=== PATIENT | female | born 2000 ===

== ENCOUNTER 2020-09-12 23:25 | Inpatient (IN) ==
[2020-09-12] MEDS ORDERED: MEPERIDINE 50 MG/1 ML VIAL IV PRN (23:50)
[2020-09-12] MEDS ORDERED: ONDANSETRON 4 MG/2 ML VIAL IV PRN (23:50)
[2020-09-13 00:21] LABS: Basophils % 0.1 % (0.0-0.8); Eosinophils # 0.1 10*3/uL (0.0-0.87); Eosinophils % 0.8 % (0.00-10.9); Hematocrit 39.2 VOL% (35.7-47.0); Hemoglobin 12.7 GM/DL (12.0-16.0); Immature Granulocytes % 0.4 %; Immature Granulocytes Absolute 0.04 #; Lymphocytes % 20.4 % (21.3-54.2); Mean Corpuscular HGB Conc 32.4 GM/DL (32-36); Mean Corpuscular Volume 87.1 FL (87-102); Mean Platelet Volume 9.4 FL (9.6-12.0); Neutrophils % 72.3 % (38.7-73.9); Platelet Count 323 T/CUMM (130-400); Red Cell Distribution Width 13.8 % (9.3-17.3); White Blood Count 9.9 T/CUMM (4-12)
[2020-09-13 00:40] LABS: Alanine Aminotransferase 19 U/L (13-56); Albumin 2.5 G/DL (3.4-5.0); Alkaline Phosphatase 183 U/L (45-117); Aspartate Amino Transferase 20 U/L (0-37); Bilirubin,Total < 0.39 MG/DL (0.20-1.00); Blood Urea Nitrogen 14 MG/DL (7-18); Calcium 8.6 MG/DL (8.5-10.1); Carbon Dioxide 19 MMOL/L (21-32); Estimated Glom Filtration Rate 157 ML/MIN; Glucose 89 MG/DL (74-106); Osmolality,Calculated 278.4 MOS/KG (273-304); Potassium 4.1 MMOL/L (3.5-5.1); Sodium 140 MMOL/L (136-145); Total Protein 6.6 G/DL (6.4-8.2)
[2020-09-13] MEDS: LACTATED RINGERS 1,000 ML IV SCH ×4 (11:12→20:53)
[2020-09-13] MEDS: OXYTOCIN/LR 20 UNIT/1,000 ML BAG IV SCH (11:17)
[2020-09-13] MEDS ORDERED: ePHEDrine 50 MG/ML VIAL IV PRN (17:14)
[2020-09-13] MEDS ORDERED: CITRIC ACID/SODIUM CITRATE 30 ML UDCUP PO ONE (17:14)
[2020-09-13] MEDS ORDERED: FAMOTIDINE 20 MG/2 ML VIAL IV ONE (17:14)
[2020-09-13] MEDS ORDERED: LACTATED RINGERS 1,000 ML IV ONE (17:14)
[2020-09-13] MEDS ORDERED: PROMETHAZINE 25 MG/1 ML VIAL IM ONE (17:15)
[2020-09-13] MEDS ORDERED: diphenhydrAMINE 50 MG/1 ML VIAL IV PRN ×2 (17:15)
[2020-09-13] MEDS ORDERED: NALOXONE 0.4 MG/ML VIAL IV PRN (17:15)
[2020-09-13] MEDS ORDERED: LACTATED RINGERS 250 ML IV PRN (17:15)
[2020-09-13] MEDS ORDERED: LACTATED RINGERS 1,000 ML IV SCH (17:30)
[2020-09-13] MEDS ORDERED: fentaNYL 2 MCG/ROPIV 0.2% EPID 100 ML EPIDURAL SCH (17:30)
[2020-09-13] MEDS: AMPICILLIN INJ 2,000 MG in SODIUM CHLORIDE 0.9% 100 ML IV SCH (22:05)
[2020-09-13 23:16] LABS: Bilirubin,Urine Negative (Negative); Blood, Urine Small mg/dL (Negative); Glucose,Urine (UA) Negative (Negative); Ketones,Urine 80 mg/dL (Negative); Mucus,Urine Moderate /LPF (Occasional); Nitrite,Urine Negative (Negative); Protein,Urine 30 MG/DL; RBC,Urine 19 /HPF (0-4); Squamous Epithelial Cell,Urine Occasional /HPF (0-10); Urine Appearance CLEAR (Clear); Urine Color Yellow (Yellow); Urine Specific Gravity 1.027 (1.001-1.035)
[2020-09-14] MEDS: OXYTOCIN/LR 20 UNIT/1,000 ML BAG IV SCH (04:24)
[2020-09-14] MEDS: AMPICILLIN INJ 2,000 MG in SODIUM CHLORIDE 0.9% 100 ML IV SCH (04:25)
[2020-09-14] MEDS ORDERED: ACETAMINOPHEN 325 MG TABLET PO PRN ×2 (05:39→10:41)
[2020-09-14] MEDS ORDERED: ceFAZolin 3,000 MG in SYRINGE 1 EACH IV ONE (06:42)
[2020-09-14] MEDS ORDERED: OXYTOCIN/LR 30 UNIT/1,000 ML BAG IV ONE (08:30)
[2020-09-14] MEDS ORDERED: METHYLERGONOVINE 0.2 MG/1 ML AMP ONE (09:31)
[2020-09-14] MEDS ORDERED: OXYTOCIN 10 UNIT/ML VIAL ONE (09:31)
[2020-09-14] MEDS ORDERED: miSOPROStoL 200 MCG TABLET ONE (09:31)
[2020-09-14] MEDS ORDERED: LIDOCAINE MPF 2% /EPI 20 ML VIAL ONE (09:41)
[2020-09-14] MEDS ORDERED: ONDANSETRON 4 MG/2 ML VIAL ONE (09:42)
[2020-09-14] MEDS ORDERED: PHENYLEPHRINE 1 MG/10 ML SYRINGE IV ONE (10:31)
[2020-09-14 10:32] LABS: Cord Arterial Blood HCO3 16.8 MMOL/L
[2020-09-14 10:34] LABS: Cord Venous Blood HCO3 20.2 MMOL/L; Cord Venous Blood PCO2 43.3 MMHG; Cord Venous Blood PO2 20.7 MMHG
[2020-09-14] MEDS ORDERED: SIMETHICONE CHEW 80 MG TABLET PO PRN (10:41)
[2020-09-14] MEDS ORDERED: ONDANSETRON 4 MG/2 ML VIAL IV PRN (10:41)
[2020-09-14] MEDS ORDERED: IBUPROFEN 800 MG TABLET PO PRN (10:41)
[2020-09-14] MEDS ORDERED: RHO(D) IMMUNE GLOBULIN 300 MCG SYRINGE IM ONE (10:41)
[2020-09-14] MEDS ORDERED: OXYTOCIN/LR 20 UNIT/1,000 ML BAG IV ONE (10:41)
[2020-09-14] MEDS ORDERED: MAGNESIUM HYDROXIDE SUSP 30 ML UDCUP PO PRN (10:41)
[2020-09-14] MEDS ORDERED: LACTATED RINGERS 1,000 ML IV SCH (11:00)
[2020-09-14] MEDS ORDERED: KETOROLAC 30 MG/1 ML VIAL IV SCH (14:30)
[2020-09-14] MEDS: ACETAMINOPHEN 500 MG TABLET PO SCH ×2 (14:35→20:35)
[2020-09-14] MEDS: ceFAZolin 2,000 MG/50 ML DUPLEX IV SCH (17:53)
[2020-09-14 18:08] LABS: Basophils % 0.2 % (0.0-0.8); Eosinophils % 0.1 % (0.00-10.9); Hematocrit 33.5 VOL% (35.7-47.0); Hemoglobin 11.2 GM/DL (12.0-16.0); Immature Granulocytes % 0.5 %; Immature Granulocytes Absolute 0.08 #; Lymphocytes % 12.3 % (21.3-54.2); Mean Corpuscular HGB Conc 33.4 GM/DL (32-36); Mean Platelet Volume 9.5 FL (9.6-12.0); Monocytes % 5.5 % (1.7-12.7); Neutrophils % 81.4 % (38.7-73.9); Platelet Count 244 T/CUMM (130-400); Red Blood Count 3.85 MC/CUMM (3.8-5.5); White Blood Count 16.1 T/CUMM (4-12)
[2020-09-14] MEDS: DOCUSATE SODIUM 100 MG CAPSULE PO SCH (20:35)
[2020-09-15] MEDS: ACETAMINOPHEN 500 MG TABLET PO SCH ×2 (02:04→08:34)
[2020-09-15] MEDS: ceFAZolin 2,000 MG/50 ML DUPLEX IV SCH (02:04)
[2020-09-15 05:46] LABS: Basophils % 0.2 % (0.0-0.8); Eosinophils # 0.1 10*3/uL (0.0-0.87); Hematocrit 32.1 VOL% (35.7-47.0); Hemoglobin 10.3 GM/DL (12.0-16.0); Immature Granulocytes % 0.3 %; Immature Granulocytes Absolute 0.04 #; Lymphocytes # 2.5 10*3/uL (1.4-4.0); Mean Corpuscular HGB Conc 32.1 GM/DL (32-36); Mean Platelet Volume 9.4 FL (9.6-12.0); Monocytes % 6.2 % (1.7-12.7); Neutrophils % 71.3 % (38.7-73.9); Platelet Count 225 T/CUMM (130-400); Red Blood Count 3.69 MC/CUMM (3.8-5.5); Red Cell Distribution Width 14.3 % (9.3-17.3); White Blood Count 12.1 T/CUMM (4-12)
[2020-09-15] MEDS: METOCLOPRAMIDE 10 MG TABLET PO SCH ×2 (08:34→19:10)
[2020-09-15] MEDS: MULTIVITAMIN (PRENATAL) TABLET PO SCH (08:34)
[2020-09-15] MEDS: DOCUSATE SODIUM 100 MG CAPSULE PO SCH (20:57)
[2020-09-16] MEDS: MULTIVITAMIN (PRENATAL) TABLET PO SCH (09:27)
[2020-09-16] MEDS: DOCUSATE SODIUM 100 MG CAPSULE PO SCH (09:29)
[2020-09-16 12:49] VITALS: BP 130/67
== END 2020-09-16 16:50 | disposition home or self-care (01) | DRG 540 ==
LOC: N.LD 23:25 → N.OB 09-14 15:22
PROVIDERS: ADMIT Obstetrics & Gynecology; ATTEND Obstetrics & Gynecology
PROC: LDCSECT (ICD-10-PCS; 2020-09-14 08:30)